=== PATIENT | female | born 1995 | race Caucasian/White ===

== ENCOUNTER 2018-04-11 16:46 | Inpatient (IN) ==
[2018-04-11] MEDS ORDERED: NALBUPHINE HCL 10 MG/ML AMPUL IV PRN (18:05)
[2018-04-11] MEDS ORDERED: ONDANSETRON HCL/PF 2 MG/ML VIAL IV PRN (18:05)
[2018-04-11] MEDS ORDERED: OXYTOCIN/DEXTROSE 5%-WATER 30 UNITS/500 ML BAG IV ONE (18:05)
[2018-04-11] MEDS ORDERED: MISOPROSTOL 100 MCG TABLET VG PRN (18:05)
[2018-04-11] MEDS ORDERED: LIDOCAINE HCL 50 ML VIAL PERI PRN (18:05)
[2018-04-11] MEDS: RINGER'S SOLUTION,LACTATED 1,000 ML IV PRN (19:34)
[2018-04-11] MEDS: CALCIUM CARBONATE 500 MG TAB.CHEW PO PRN (21:48)
[2018-04-12] MEDS: NALBUPHINE HCL 10 MG/ML AMPUL IV PRN ×3 (00:56→03:24)
[2018-04-12] MEDS ORDERED: RINGER'S SOLUTION,LACTATED 1,000 ML IV ONE (02:32)
[2018-04-12] MEDS ORDERED: ONDANSETRON HCL/PF 2 MG/ML VIAL IV PRN (04:03)
[2018-04-12] MEDS ORDERED: NALOXONE HCL 1 MG/1 ML SYRG IV PRN (04:03)
[2018-04-12] MEDS ORDERED: fentaNYL CITRATE/PF 50 MCG/ML AMPUL IT SCH (04:15)
[2018-04-12] MEDS: RINGER'S SOLUTION,LACTATED 1,000 ML IV PRN ×2 (05:17→10:30)
--- NOTE | 2018-04-12 05:50 | ANES ---
Anesthesia Pre Procedure Eval Vitals/Labs: Last Vital Signs Temp 37.2 C 04/11/18 18:18 Pulse 83 04/11/18 18:18 Resp 18 04/11/18 18:18 BP 150/97 H 04/11/18 18:18 Pulse Ox 97 04/11/18 18:18 HOME MEDICATIONS vitamins-iron fumarate 27 mg iron-folic acid 0.8 mg tablet 1 tab PO DAILY 03/09/18 [Last Taken 04/11/18 09:00] ranitidine 150 mg tablet 150 mg PO BID tab 03/09/18 [Last Taken 04/11/18 11:00] Calcium Carbonate [Tums] 500 mg PO BID 04/06/18 [Last Taken 04/11/18 11:00] Acetaminophen [Tylenol 8 Hour] 650 mg PO Q4H PRN 04/07/18 [Last Taken 04/07/18 07:30] Allergies/Adverse Reactions: Allergies Allergy/AdvReac Type Severity Reaction Status Date / Time No Known Allergies Allergy Verified 04/06/18 10:07 - Planned Procedure Planned Procedure: ADMIT FOR INDUCTION Medical History (Last Reviewed 04/12/18 @ 05:48 by Kamari Ho CRNA) Currently Onset Date: 09/23/17 Chickenpox Onset Date: Unknown Dislocation of hip, obturator, left, closed Onset Date: 01/06/14 Fracture of humerus greater tuberosity Onset Date: 01/06/14 Nasal bones, closed fracture Onset Date: ~2007 Vulvovaginitis Onset Date: 03/19/16 Surgical History (Last Reviewed 04/12/18 @ 05:48 by Kamari Ho CRNA) H/O adenoidectomy Onset Date: Unknown History of tonsillectomy Onset Date: Unknown Family History (Last Reviewed 04/12/18 @ 05:48 by Kamari Ho CRNA) Brother Alive and well Father Alive and well Mother Hypertension Sister Alive and well - Family Anesthesia History Family History:: no untoward family reactions to anesthesia, no familial bleeding tendencies, no family history of clotting disorders, no family history of premature - Airway/Neck/Teeth Within Normal Limits:: Yes Teeth Condition: Intact Neck Exam: non-tender, full range of motion, normal alignment Mallampatti Score: 2 Thyromental (T-M) distance: > 6 cm Mandibulo Hyoid distance: > 3 cm - Respiratory Respiratory: chest non-tender, lungs clear Smoking Status: Never smoker Sleep Apnea currently treated: No Sleep Apnea by current assessment: No - Cardiovascular Patient History - Cardiac/Respiratory: No pertinent hx Tolerates Activity: Good Heart Sounds: S1 & S2, Regular - Anesthesia Assessment and Plan ASA Class: PS, II, E Anesthesia Type Plan: Epidural - Currently at 3 cm, primipara in active labor Planned difficult intubation/equipment available: No
--- NOTE | 2018-04-12 06:11 | ANES ---
Post Anesthesia Discharge - Transfer of Care Transfer of Care handoff given to nurse: Yes - Discharge to ASU Discharge to ASU-no complications/pt stable: Yes - comfortable post epidural
--- NOTE | 2018-04-12 06:16 | ANES ---
Anesthesia Procedure Note Procedure Note: ANESTHESIA PROCEDURE NOTE Date of Procedure: 04/12/2018 Time of procedure: 5:40 AM. Performed by: ACACIA Hudson CRNA, MSN Auto Glass Installer: Stefani Talavera. Preprocedure diagnosis: Active labor, labor pain. Post procedure diagnosis: Same. Procedure:Epidural for labor analgesia L34. Indications: Labor pain. Findings: See below. Details of the procedure: The patient was placed on the side of the bed in sitting positionand prepped with DuraPrep then draped in a sterile fashion. Lidocaine 1% was infiltrated to the skin and subcutaneous tissues at the level of the L34 interspace. An 18-gauge Touhy needle was used to approach the epidural space with loss of resistance technique. Once loss of resistance was achieved a 27-gauge spinal needle was passed through the epidural needle and CSF was contacted. After CSF returned, 20 mcg of fentanyl was injected in the spinal needle was removed the epidural catheter was then threaded approximately 4 cm in the epidural needle was removed. The catheter was taped in place and after careful aspiration 3 mL of 1.5% lidocaine with 1-200,000 epinephrine was injected without change in maternal heart rate or sensorium. . EBL: Minimal. Fluids: N/A. Specimen: N/A. Post procedure condition: The patient tolerated the procedure well with good relief. No complications were noted. Thank you for this consultation. Kamari Ho CRNA, ARNP, MSN
--- NOTE | 2018-04-12 06:39 | ANES ---
Post Anesthesia Assessment - Vital Signs Vitals: Last Vital Signs Temp 37.2 C 04/11/18 18:18 Pulse 83 04/11/18 18:18 Resp 18 04/11/18 18:18 BP 150/97 H 04/11/18 18:18 Pulse Ox 97 04/11/18 18:18 Airway Patency: Normal - Mental Status Level Of Consciousness: Awake, Alert, Appropriate - Pain Level Pain Score: 0 - N/V Assessment Nausea/Vomiting Presence: None Dehydration:: No
[2018-04-12] MEDS: BUPIVACAINE HCL/0.9 % NACL/PF 250 ML EP PRN ×2 (06:56→18:02)
[2018-04-12] MEDS: FAMOTIDINE 20 MG TABLET PO SCH ×2 (07:53→14:53)
--- NOTE | 2018-04-12 13:31 | PN ---
Progess Note - Interim Date: 04/12/18 Time: 13:00 Narrative: 04/12/18 13:30 The patient is comfortable with epidural cvx 2/60/-2 AROM for a large amount of clear fluid IUPC/FSE placed Pitocin at 2 milliunits/min Fetus is cat 1 Continue to titrate pitocin up
[2018-04-12] MEDS: CALCIUM CARBONATE 500 MG TAB.CHEW PO PRN (14:51)
[2018-04-12] MEDS ORDERED: ACETAMINOPHEN 500 MG TABLET PO PRN (22:07)
[2018-04-12] MEDS ORDERED: GLYCERIN/WITCH HAZEL LEAF 40 APPL BOX TP PRN (22:07)
[2018-04-12] MEDS ORDERED: OXYTOCIN/DEXTROSE 5%-WATER 30 UNITS/500 ML BAG IV ONE (22:07)
[2018-04-12] MEDS ORDERED: ACETAMINOPHEN 325 MG TABLET PO PRN (22:07)
[2018-04-12] MEDS ORDERED: HYDROcodone/ACETAMINOPHEN 1 EACH TABLET PO PRN (22:07)
[2018-04-12] MEDS ORDERED: SENNOSIDES 8.6 MG TABLET PO PRN (22:07)
[2018-04-12] MEDS ORDERED: diphenhydrAMINE HCL 25 MG CAPSULE PO PRN (22:07)
[2018-04-12] MEDS ORDERED: HYDROCORTISONE 30 APPL TUBE TP PRN (22:07)
[2018-04-12] MEDS ORDERED: BISACODYL 10 MG SUPP.RECT RC PRN (22:07)
[2018-04-12] MEDS ORDERED: BENZOCAINE/MENTHOL 81 SPRAY CAN TP PRN (22:07)
--- NOTE | 2018-04-12 22:14 | PROC NOTE ---
ED Procedures - Additional Procedures Progress: Procedure: vaginal delivery Attending: Dr. Daryl Merritt in attendance for proctoring Date and time of delivery: 04/12/2018 at 9:51 PM Sex: Female weight: 3357 grams APGARS: 03/14 Description of the procedure: The patient presented to labor and delivery for IOL due to GHTN. She underwent cervical ripening with misoprostol followed by augmentation with pitocin and AROM. She progressed to complete dilation. The presentation at the time of delivery was direct OA. She had a midline vaginal laceration which was repaired with 2-0 vicryl. The placenta was delivered by expression. The placenta appeared intact and was sent to pathology. Complications: none Definition: * The number of deliveries resulting in a live the patient experienced prior to current hospitalization * The previous delivery of live twins or any live multiple gestation is considered one live event. *If primagravida or nulliparous is documented select zero for the number of previous live births. Live Births: 0
[2018-04-13] MEDS: IBUPROFEN 800 MG TABLET PO PRN ×4 (01:08→23:48)
[2018-04-13] MEDS: FAMOTIDINE 20 MG TABLET PO SCH ×3 (05:05→20:34)
[2018-04-13] MEDS: HYDROcodone/ACETAMINOPHEN 1 EACH TABLET PO PRN ×4 (05:06→23:48)
[2018-04-13] MEDS: CALCIUM CARBONATE 500 MG TAB.CHEW PO PRN (05:06)
--- NOTE | 2018-04-13 08:28 | PN ---
Subjective - Date and Time Seen Date: 04/13/18 Time: 08:25 Objective - Review of Systems Generalized/Overall Review: Reports: No Symptoms Reported EENTM: Reports: No Symptoms Reported Respiratory: Reports: No Symptoms Reported Cardiac: Reports: No Symptoms Reported Abdominal: Reports: No Symptoms Reported Genitourinary Symptoms: Reports: No Symptoms Reported Musculoskeletal Complaints: Reports: No Symptoms Reported Neurological: Reports: No Symptoms Reported Skin: Reports: No Symptoms Reported Endocrine: Reports: No Symptoms Reported - Vitals Vitals: Last Vital Signs Temp 35.7 C L 04/13/18 06:55 Pulse 69 04/13/18 06:55 Resp 20 04/13/18 06:55 BP 164/91 H 04/13/18 06:55 Pulse Ox 98 04/13/18 06:55 - Exam Constitutional: Present: Alert, Oriented x3, Cooperative, No distress Breasts: Present: Exam deferred Respiratory: Present: chest non-tender Cardiovascular/Chest: Present: normal peripheral pulses, edema Abdomen: Present: soft, nontender /Rectal: Present: Exam deferred Extremity: Present: non-tender, no calf tenderness, pedal edema Skin Exam: Present: normal color, warm/dry, no cyanosis Appearance: Present: appropriate appearance Eye contact: Present: cooperative Thoughts: Present: normal thought pattern Cauti Physician Documentation - Urinary Catheter Management Urethral ([place]) Urethral Indwelling: No Date of Insertion: 04/12/18 Time of Insertion: 06:30 Date of Removal: 04/12/18 Time of Removal: 20:10 Assessment/Plan Plan Narrative: PPD 1 s/p Doing well Two BPs in the severe range. Continue to monitor. If BPs persistently elevated in the severe range will start procardia 30mg XL daily. Discharge tomorrow as long as BPs are stable
[2018-04-13] MEDS: DOCUSATE SODIUM 100 MG CAPSULE PO SCH ×2 (09:53→20:34)
--- NOTE | 2018-04-13 17:57 | PN ---
Progeshelder Note - Interim Date: 04/13/18 Time: 17:56 Narrative: 04/13/18 17:56 The patient's BP continue to be in the severe range. She is asymptomatic. Start procardia 30mg XL. Discharge home on procardia and continue until 6 weeks .
[2018-04-13] MEDS: NIFEdipine 30 MG TAB.SR.24H PO SCH (18:05)
[2018-04-13] MEDS ORDERED: NIFEdipine 30 MG TAB.SR.24H PO ONE (21:00)
[2018-04-14] MEDS: IBUPROFEN 800 MG TABLET PO PRN (06:42)
--- NOTE | 2018-04-14 08:45 | PN ---
Subjective - Date and Time Seen Date: 04/14/18 Time: 08:43 Objective - Review of Systems Generalized/Overall Review: Reports: No Symptoms Reported EENTM: Reports: No Symptoms Reported Respiratory: Reports: No Symptoms Reported Cardiac: Reports: No Symptoms Reported Abdominal: Reports: No Symptoms Reported Genitourinary Symptoms: Reports: No Symptoms Reported Musculoskeletal Complaints: Reports: No Symptoms Reported Neurological: Reports: No Symptoms Reported Skin: Reports: No Symptoms Reported Endocrine: Reports: No Symptoms Reported - Vitals Vitals: Last Vital Signs Temp 36.0 C 04/14/18 07:23 Pulse 77 04/14/18 07:23 Resp 16 04/14/18 07:23 BP 141/93 H 04/14/18 07:23 Pulse Ox 98 04/14/18 07:23 - Exam Constitutional: Present: Alert, Oriented x3, Cooperative, No distress Breasts: Present: Exam deferred Cardiovascular/Chest: Present: normal peripheral pulses, no edema Extremity: Present: non-tender, pedal edema Skin Exam: Present: normal color, warm/dry, no cyanosis - Discharge today Cauti Physician Documentation - Urinary Catheter Management Urethral ([place]) Urethral Indwelling: No Date of Insertion: 04/12/18 Time of Insertion: 06:30 Date of Removal: 04/12/18 Time of Removal: 20:10
--- NOTE | 2018-04-14 09:05 | DS ---
(1) Gestational hypertension Problem: Acute Qualifiers: Trimester: third trimester Qualified Code(s): O13.3 - Gestational [ -induced] hypertension without significant proteinuria, third trimester Procedures Performed: see notes below List Procedures: Results and Findings: Lab Pending Results 04/11/18 18:57: Blood Type A Positive, Antibody Screen Negative Discharge Location: Home Disposition: Home self-care Condition: Good Discharge Activity: Activity as tolerated Discharge Diet: General/regular food Prescriptions (Any new or edited meds): NIFEdipine [Procardia Xl] 30 mg PO BID 30 Days #60 tab Complete Home Medications List: Complete Home Medication List: vitamins-iron fumarate 27 mg iron-folic acid 0.8 mg tablet 1 tab PO DAILY 03/09/18 ranitidine 150 mg tablet 150 mg PO BID tab 03/09/18 Calcium Carbonate [Tums] 500 mg PO BID 04/06/18 Acetaminophen [Tylenol 8 Hour] 650 mg PO Q4H PRN 04/07/18 Acetaminophen [Tylenol] 650 mg PO Q4H PRN tablet 04/14/18 Docusate Sodium [Colace] 100 mg PO BID capsule 04/14/18 NIFEdipine [Procardia Xl] 30 mg PO BID 30 Days #60 tab 04/14/18
[2018-04-14] MEDS: DOCUSATE SODIUM 100 MG CAPSULE PO SCH (09:19)
[2018-04-14] MEDS: FAMOTIDINE 20 MG TABLET PO SCH (09:19)
[2018-04-14 11:06] VITALS: BP 133/86
[2018-04-14] MEDS: NIFEdipine 30 MG TAB.SR.24H PO SCH (11:07)
== END 2018-04-14 15:45 | disposition home or self-care (01) | DRG 775 ==
LOC: OB 17:57
PROVIDERS: ADMIT Obstetrics & Gynecology; ATTEND Obstetrics & Gynecology
CPT/HCPCS: 59025; 86850; 86900; 88307

== ENCOUNTER 2020-03-14 06:00 | Inpatient (IN) ==
[2020-03-14] MEDS ORDERED: OXYTOCIN/DEXTROSE 5%-WATER 30 UNITS/500 ML BAG IV ONE (09:52)
[2020-03-14] MEDS ORDERED: ONDANSETRON 4 MG TAB.RAPDIS PO PRN (09:52)
[2020-03-14] MEDS ORDERED: RINGER'S SOLUTION,LACTATED 1,000 ML IV ONE (09:52)
[2020-03-14] MEDS ORDERED: BUTORPHANOL TARTRATE 2 MG/ML VIAL IV PRN ×2 (09:52)
[2020-03-14] MEDS ORDERED: LIDOCAINE HCL 50 ML VIAL PERI PRN (09:52)
[2020-03-14] MEDS: MISOPROSTOL 100 MCG TABLET VG PRN ×2 (10:20→15:10)
--- NOTE | 2020-03-14 18:36 | HP ---
Chief Complaint - Chief Complaint Date of Service: 03/14/20 Time of Service: 18:32 Chief Complaint: Labor induction History of Present Illness: 25 year old at 38w 2d who presents to labor and delivery for an induction of labor due to GHTN. She denies vb or lof. Feeling some but not all ctx. Fetus is active. Medical History (Last Reviewed 03/14/20 @ 18:33 by Candida Magana MD) Chickenpox Onset Date: Unknown Currently Onset Date: 09/23/17 Dislocation of hip, obturator, left, closed Onset Date: 01/06/14 Fracture of humerus greater tuberosity Onset Date: 01/06/14 Gestational hypertension Gestational hypertension Onset Date: ~04/2018 Nasal bones, closed fracture Onset Date: ~2007 Vulvovaginitis Onset Date: 03/19/16 Surgical History: Surgical History (Last Reviewed 03/14/20 @ 18:33 by Candida Magana MD) H/O adenoidectomy Onset Date: Unknown History of tonsillectomy Onset Date: Unknown Family History: Family History (Last Reviewed 03/14/20 @ 18:33 by Candida Magana MD) Brother Alive and well 3 brothers Father Alive and well Mother Hypertension Sister Alive and well 2 sisters Social History: (Last Reviewed 03/14/20 @ 18:33 by Candida Magana MD) Social History: Marital status: current occupational status: employed current occupation: registered nurse Highest education level completed: Bachelor's degree Service: No Tobacco: Smoking Status: Never smoker Alcohol: alcohol intake: former Substance Use: substance use type: does not use Dietary Habits: caffeine: Yes caffeine comment: weekly Type: carbonated beverages Review Of Systems (GEN) - Review of Systems Generalized/Overall Review: Present: No Symptoms Reported Misc: All systems neg except as marked Allergies/Adverse Reactions: Allergies Allergy/AdvReac Type Severity Reaction Status Date / Time No Known Allergies Allergy Verified 03/13/20 09:18 Home Medications: HOME MEDICATIONS vitamins-iron fumarate 27 mg iron-folic acid 0.8 mg tablet 1 tab PO DAILY 03/09/18 [Last Taken 03/14/20 05:30] aspirin 81 mg tablet,delayed release 81 mg PO DAILY 10/11/19 [Last Taken 03/13/20 07:00] omeprazole 20 mg capsule,delayed release 20 mg PO DAILY 11/09/19 [Last Taken Unknown] ascorbic acid (vitamin C) 500 mg tablet 500 mg PO DAILY 02/02/20 [Last Taken Unknown] ferrous sulfate 325 mg (65 mg iron) tablet 325 mg PO DAILY 02/02/20 [Last Taken Unknown] Exam - Exam Vital Signs: 122/80 95 20 36.6 98% RA Constitutional: Present: Alert, Oriented x3, Cooperative, No distress ENT Exam: Present: hearing grossly normal Eye Exam: bilateral eye: normal inspection Neck: Present: normal inspection Back Exam: Present: normal inspection, no CVA tenderness Breasts: Present: Exam deferred Respiratory: Present: lungs clear, normal breath sounds, no respiratory distress Cardiovascular/Chest: Present: regular rate, rhythm Abdomen: Present: soft, nontender, nondistended /Rectal: Present: Other - 2/50/-2 AROM for clear fluid Extremity: Present: non-tender, no calf tenderness Skin Exam: Present: normal color, warm/dry, no cyanosis Neurologic: Present: alert, normal mood/affect, oriented x 3 Appearance: Present: appropriate appearance, appropriate insight, neat, no memory impairment Eye contact: Present: cooperative, good eye contact, normal speech Thoughts: Present: normal thought pattern Diagnostic Studies: Laboratory Results Blood Type A Positive 03/14/20 10:20 Antibody Screen Negative 03/14/20 10:20 Assessment/Plan - Narrative Narrative: 25 year old at 38w 2d Medical IOL for GHTN: s/p cytotec 25 mcg x2, AROM for augmentation, start pitocin when able GBS negative: prophylaxis not indicated - Assessment/Plan (1) 38 weeks gestation of Problem: Acute (2) Gestational hypertension Problem: Acute Qualifiers: Trimester: third trimester Qualified Code(s): O13.3 - Gestational [-induced] hypertension without significant proteinuria, third trimester
[2020-03-14] MEDS ORDERED: NALOXONE HCL 1 MG/1 ML SYRG IV PRN (19:04)
[2020-03-14] MEDS ORDERED: ONDANSETRON HCL/PF 2 MG/ML VIAL IV PRN (19:04)
[2020-03-14] MEDS ORDERED: BUPIVACAINE HCL/0.9 % NACL/PF 250 ML EP PRN (19:04)
[2020-03-14] MEDS ORDERED: fentaNYL CITRATE/PF 50 MCG/ML AMPUL IT SCH (19:15)
[2020-03-14] MEDS: RINGER'S SOLUTION,LACTATED 1,000 ML IV PRN (20:41)
--- NOTE | 2020-03-14 20:57 | ANES ---
Anesthesia Pre Procedure Eval Vitals/Labs: Last Vital Signs Temp 36.7 C 03/14/20 19:05 Pulse 94 03/14/20 19:05 Resp 22 H 03/14/20 19:05 BP 141/80 H 03/14/20 19:05 Pulse Ox 98 03/14/20 19:05 HOME MEDICATIONS vitamins-iron fumarate 27 mg iron-folic acid 0.8 mg tablet 1 tab PO DAILY 03/09/18 [Last Taken 03/14/20 05:30] aspirin 81 mg tablet,delayed release 81 mg PO DAILY 10/11/19 [Last Taken 03/13/20 07:00] omeprazole 20 mg capsule,delayed release 20 mg PO DAILY 11/09/19 [Last Taken Unknown] ascorbic acid (vitamin C) 500 mg tablet 500 mg PO DAILY 02/02/20 [Last Taken Unknown] ferrous sulfate 325 mg (65 mg iron) tablet 325 mg PO DAILY 02/02/20 [Last Taken Unknown] Allergies/Adverse Reactions: Allergies Allergy/AdvReac Type Severity Reaction Status Date / Time No Known Allergies Allergy Verified 03/13/20 09:18 - Planned Procedure Planned Procedure: MEDICAL INDUCTION Medication List Reviewed:: Yes Allergies Verified: Yes Medical History (Last Reviewed 03/14/20 @ 20:56 by Kamari Ho CRNA) Chickenpox Onset Date: Unknown Currently Onset Date: 09/23/17 Dislocation of hip, obturator, left, closed Onset Date: 01/06/14 Fracture of humerus greater tuberosity Onset Date: 01/06/14 Gestational hypertension Gestational hypertension Onset Date: ~04/2018 Nasal bones, closed fracture Onset Date: ~2007 Vulvovaginitis Onset Date: 03/19/16 Surgical History (Last Reviewed 03/14/20 @ 20:56 by Kamari Ho CRNA) H/O adenoidectomy Onset Date: Unknown History of tonsillectomy Onset Date: Unknown Family History (Last Reviewed 03/14/20 @ 20:56 by Kamari Ho CRNA) Brother Alive and well 3 brothers Father Alive and well Mother Hypertension Sister Alive and well 2 sisters - Family Anesthesia History Family History:: no untoward family reactions to anesthesia, no familial bleeding tendencies, no family history of clotting disorders, no family history of premature - Airway/Neck/Teeth Within Normal Limits:: Yes Teeth Condition: intact Neck Exam: full range of motion Mallampatti Score: 2 Thyromental (T-M) distance: > 6 cm Mandibulo Hyoid distance: > 3 cm - Respiratory Respiratory Physical: lungs clear Smoking Status: Never smoker Sleep Apnea currently treated: No Sleep Apnea by current assessment: No - Cardiovascular Cardiac History: hypertension - gestational Tolerate Activity: Fair Heart Sounds: S1 & S2, Regular - Gastrointestinal NPO since: ice chips - Anesthesia Assessment and Plan ASA Class: PS, II, E
--- NOTE | 2020-03-14 21:18 | ANES ---
Post Anesthesia Discharge - Transfer of Care Transfer of Care handoff given to nurse: Yes - Discharge from PACU Discharge from PACU when meets criteria: Yes - Comfortable post CSE.
--- NOTE | 2020-03-14 21:21 | ANES ---
Anesthesia Procedure Note Procedure Note: ANESTHESIA PROCEDURE NOTE Date of Procedure: 03/14/2020 Time of procedure: 2054. Performed by: ACACIA Hudson CRNA, MSN Senior Benefits Specialist: Jaya Tariq RN. Preprocedure diagnosis: Active labor, labor pain. Post procedure diagnosis: Same. Procedure:Epidural for labor analgesia L4-5. Indications: Labor pain. Findings: See below. Details of the procedure: The patient was placed on the side of the bed in sitting positionand prepped with DuraPrep then draped in a sterile fashion. Lidocaine 1% was infiltrated to the skin and subcutaneous tissues at the level of the L4-5 interspace. An 18-gauge Touhy needle was used to approach the epidural space with loss of resistance technique. Once loss of resistance was achieved a 27-gauge spinal needle was passed through the epidural needle and CSF was contacted. After CSF returned, 20 mcg of fentanyl was injected in the spinal needle was removed the epidural catheter was then threaded approximately 4 cm in the epidural needle was removed. The catheter was taped in place and after careful aspiration 3 mL of 1.5% lidocaine with 1-200,000 epinephrine was injected without change in maternal heart rate or sensorium. . EBL: Minimal. Fluids: N/A. Specimen: N/A. Post procedure condition: The patient tolerated the procedure well with good relief. No complications were noted. Thank you for this consultation. Kamari Ho CRNA, ARNP, MSN
--- NOTE | 2020-03-14 21:24 | ANES ---
Post Anesthesia Assessment - Vital Signs Vitals: Last Vital Signs Temp 36.7 C 03/14/20 19:05 Pulse 94 03/14/20 19:05 Resp 22 H 03/14/20 19:05 BP 141/80 H 03/14/20 19:05 Pulse Ox 98 03/14/20 19:05 Airway Patency: Normal - Mental Status Level Of Consciousness: Awake, Alert, Appropriate - Pain Level Pain Score: 0 - N/V Assessment Nausea/Vomiting Presence: None Dehydration:: No
[2020-03-15] MEDS: RINGER'S SOLUTION,LACTATED 1,000 ML IV PRN (04:49)
[2020-03-15] MEDS ORDERED: GLYCERIN/WITCH HAZEL LEAF 40 APPL BOX TP PRN (06:37)
[2020-03-15] MEDS ORDERED: SENNOSIDES 8.6 MG TABLET PO PRN (06:37)
[2020-03-15] MEDS ORDERED: HYDROcodone/ACETAMINOPHEN 1 EACH TABLET PO PRN (06:37)
[2020-03-15] MEDS ORDERED: BISACODYL 10 MG SUPP.RECT RC PRN (06:37)
[2020-03-15] MEDS ORDERED: HYDROCORTISONE 30 APPL TUBE TP PRN (06:37)
[2020-03-15] MEDS ORDERED: BENZOCAINE/MENTHOL 81 SPRAY CAN TP PRN (06:37)
[2020-03-15] MEDS ORDERED: OXYTOCIN/DEXTROSE 5%-WATER 30 UNITS/500 ML BAG IV ONE (06:37)
[2020-03-15] MEDS ORDERED: diphenhydrAMINE HCL 25 MG CAPSULE PO PRN (06:37)
--- NOTE | 2020-03-15 06:37 | OR ---
Operative Report - Dictated Report Narrative: Date of delivery: 03/15/2020 Time of delivery: 06 Gender: female weight: 3257 grams APGARS: 6/9 Procedure: Description of the procedure: The patient is a 25 year old at 38w 3d who presented to labor and delivery for a medical IOL due to GHTN. She received cytotec x2. She was then on pitocin and also augmented with AROM. She progressed to complete dilation. She delivered a viable female in KALYAN presentation. A tight nuchal cord noted and it was cut at the perineum. The shoulders delivered without any difficulty followed by the rest of the infant. The was brought to the warmer for resuscitation. Cord blood was collected. There was avulsion of the umbilical cord. The placenta was removed manually. The entire placenta was removed. The patient tolerated this well. Will give a dose of antibiotics for endometritis prophylaxis. There were no lacerations. EBL: 100 mL Complications: none Specimens: cord blood History for Definition: * The number of deliveries resulting in a live the patient experienced prior to current hospitalization * The previous delivery of live twins or any live multiple gestation is considered one live event. *If primagravida or nulliparous is documented select zero for the number of previous live births. Live Events: 1
[2020-03-15] MEDS ORDERED: ceFAZolin SODIUM 2 GM in DEXTROSE 5 % IN WATER 50 ML IV PRN ×2 (07:15)
[2020-03-15] MEDS: IBUPROFEN 800 MG TABLET PO PRN ×3 (07:20→22:01)
[2020-03-15] MEDS: HYDROcodone/ACETAMINOPHEN 1 EACH TABLET PO PRN ×2 (08:05→19:16)
[2020-03-15] MEDS: PRENATAL VITS96/IRON FUM/FOLIC 1 TAB TABLET PO SCH (10:20)
[2020-03-15] MEDS: DOCUSATE SODIUM 100 MG CAPSULE PO SCH ×2 (10:20→22:02)
[2020-03-16] MEDS: HYDROcodone/ACETAMINOPHEN 1 EACH TABLET PO PRN ×3 (05:05→20:32)
[2020-03-16] MEDS: IBUPROFEN 800 MG TABLET PO PRN ×3 (05:05→20:33)
[2020-03-16] MEDS: PRENATAL VITS96/IRON FUM/FOLIC 1 TAB TABLET PO SCH (09:20)
[2020-03-16] MEDS: DOCUSATE SODIUM 100 MG CAPSULE PO SCH ×2 (09:20→20:33)
--- NOTE | 2020-03-16 12:52 | PN ---
Subjective - Date and Time Seen Date: 03/16/20 Time: 12:51 Objective - Vitals Vitals: Last Vital Signs Temp 35.7 C L 03/16/20 06:40 Pulse 64 03/16/20 06:40 Resp 20 03/16/20 06:40 BP 142/92 H 03/16/20 06:40 Pulse Ox 99 03/16/20 06:40 Patient denies complaints. Specifically denies headache, visual changes, or epigastric pain. Lochia wnl abdomen - soft, nontender Uterus -firm, at umbilicus - 1 no calf tenderness Impression: day #1 - s/p spontaneous vaginal delivery. Gestational hypertension-present with no severe features Plan: Continue routine care. Monitor closely for development of severe features. Cauti Physician Documentation - Urinary Catheter Management Urethral ([place]) Date of Insertion: 03/14/20 Time of Insertion: 22:00 Date of Removal: 03/15/20 Time of Removal: 06:05
[2020-03-17] MEDS: IBUPROFEN 800 MG TABLET PO PRN (04:45)
[2020-03-17] MEDS: DOCUSATE SODIUM 100 MG CAPSULE PO SCH ×2 (07:10→10:32)
[2020-03-17] MEDS: HYDROcodone/ACETAMINOPHEN 1 EACH TABLET PO PRN (07:10)
[2020-03-17] MEDS: PRENATAL VITS96/IRON FUM/FOLIC 1 TAB TABLET PO SCH ×2 (07:11→10:32)
[2020-03-17 07:36] VITALS: BP 137/91
--- NOTE | 2020-03-17 09:05 | PN ---
Subjective - Date and Time Seen Date: 03/17/20 Time: 09:04 Objective - Vitals Vitals: Last Vital Signs Temp 36.1 C 03/17/20 07:35 Pulse 80 03/17/20 07:35 Resp 20 03/17/20 07:35 BP 137/91 H 03/17/20 07:35 Pulse Ox 98 03/17/20 07:35 Patient denies complaints. Lochia wnl abdomen - soft, nontender Uterus -firm, at umbilicus - 2 no calf tenderness Impression: day #2 - s/p spontaneous vaginal delivery. Gestational hypertension-stable Plan: Routine discharge instructions. Preeclampsia precautions. Blood pressure check in 1 week. Cauti Physician Documentation - Urinary Catheter Management Urethral ([place]) Date of Insertion: 03/14/20 Time of Insertion: 22:00 Date of Removal: 03/15/20 Time of Removal: 06:05
== END 2020-03-17 12:50 | disposition home or self-care (01) | DRG 807 ==
LOC: OB 06:00
PROVIDERS: ADMIT Obstetrics & Gynecology; ATTEND Obstetrics & Gynecology
CPT/HCPCS: 59025; 86850